=== PATIENT | female | born 1945 | race Caucasian/White ===

== ENCOUNTER → 2020-07-20 13:57 | Outpatient (BNVA) | payer OTHER, SELFPAY | PROVIDERS: PCP Physician Assistant Medical; Referring Provider Family Medicine; Visit Provider Psychiatry & Neurology Neurology | DX: R53.1 Weakness; R29.6 Repeated falls; I95.1 Orthostatic hypotension; M48.02 Spinal stenosis, cervical region | CPT/HCPCS: 99205; G2212 ==

== ENCOUNTER → 2020-08-26 07:34 | Outpatient (BNVA) | payer OTHER, SELFPAY | PROVIDERS: PCP Physician Assistant Medical; Referring Provider Physician Assistant Medical; Visit Provider Psychiatry & Neurology Neurology | DX: R69 Illness, unspecified (principal) ==

== ENCOUNTER 2024-07-22 19:06 | Emergency (ER) | payer MEDICARE, SELFPAY ==
[2024-07-22] VITALS (28 sets, daily range): BP systolic 121–192; BP diastolic 43–89; PULSE 61–111; RESP 17–34; O2SAT 81–97
--- NOTE | 2024-07-22 19:22 | W.ED.GENAD ---
Discharge Plan Disposition Patient Disposition: Home Condition: Stable Discharge Details Clinical Impression: Abdominal pain Primary Care Provider: Alirio Catherine ED Provider: Geovanny Torres Home Meds and New Rx's Prescriptions: New ondansetron 4 mg tablet,disintegrating 4 mg PO Q8H PRN (Reason: nausea and vomiting) Qty: 30 0RF Continued allopurinol 100 mg tablet 100 mg PO DAILY nortriptyline 50 mg capsule 50 mg PO BID Lantus Solostar U-100 Insulin 100 unit/mL (3 mL) insulin pen 50 unit subcut DAILY multivitamin Tablet 1 tab PO BID aspirin 325 mg tablet 325 mg PO DAILY Trulicity 0.75 mg/0.5 mL pen injector 1.5 mg subcut QWEEK glipizide 10 mg tablet 2.5 mg PO DAILY simvastatin 10 mg tablet 20 mg PO DAILY ciprofloxacin HCl 500 mg tablet 500 mg PO Q12H Rx Instructions: 7 days metronidazole 500 mg tablet 500 mg PO TID Rx Instructions: 7 days alprazolam 0.5 mg tablet 0.5 mg PO DAILY PRN azithromycin 250 mg tablet 250 mg PO DAILY Rx Instructions: 9 days buspirone 7.5 mg tablet 7.5 mg PO BID carbidopa-levodopa 25-100 mg tablet 1 tab PO TID cholecalciferol (vitamin D3) 25 mcg (1,000 unit) capsule 25 mcg PO DAILY cyanocobalamin (vitamin B-12) 1,000 mcg capsule 1,000 mcg PO DAILY memantine 5 mg tablet 5 mg PO BID polyethylene glycol 3350 [Miralax] 17 gram/dose powder 17 g PO DAILY Discharge Instructions Additional Instructions: Your CAT scan and blood work did not show any concerning findings at this time. There was some signs he may be developing a GI bug. Follow-up with your primary care provider especially if symptoms continue within a week If you feel more ill, have severe recurrent abdominal pain or persistent vomiting return to the emergency department for reevaluation HPI General Mode of arrival: EMS. Date/Time Provider Initiated Documentation: 07/22/24 19:09. Limitations to Documentation: no limitations. Information obtained by: patient. History of Present Illness 79 year old F presents to the emergency department with the chief complaint of n/v abdominal pain, described as moderate, and is localized to the abdomen. Patient started experiencing this hour(s) (8) and it has been now resolved. No relieving factors improve symptom(s), No exacerbating factors reported . Patient notes denies chest pain, fever/chills and shortness of breath. Patient did receive the following treatments prior to arrival, none Related Data Home Medications ?Medication ?Instructions ?Recorded ?Confirmed allopurinol 100 mg tablet 100 mg PO DAILY 07/20/20 07/20/20 aspirin 325 mg tablet 325 mg PO DAILY 07/20/20 07/20/20 insulin glargine 100 unit/mL (3 50 unit subcut DAILY 07/20/20 07/20/20 mL) subcutaneous pen (Lantus Solostar U-100 Insulin) multivitamin 1 tab PO BID 07/20/20 07/20/20 nortriptyline 50 mg capsule 50 mg PO BID 07/20/20 07/20/20 alprazolam 0.5 mg tablet 0.5 mg PO DAILY PRN 11/22/23 azithromycin 250 mg tablet 250 mg PO DAILY 11/22/23 buspirone 7.5 mg tablet 7.5 mg PO BID 11/22/23 carbidopa 25 mg-levodopa 100 mg 1 tab PO TID 11/22/23 tablet cholecalciferol (vitamin D3) 25 25 mcg PO DAILY 11/22/23 mcg (1,000 unit) capsule ciprofloxacin HCl 500 mg tablet 500 mg PO Q12H 11/22/23 cyanocobalamin (vitamin B-12) 1,000 mcg PO DAILY 11/22/23 1,000 mcg capsule dulaglutide 0.75 mg/0.5 mL 1.5 mg subcut QWEEK 11/22/23 subcutaneous pen injector ([facility]) glipizide 10 mg tablet 2.5 mg PO DAILY 11/22/23 memantine 5 mg tablet 5 mg PO BID 11/22/23 metronidazole 500 mg tablet 500 mg PO TID 11/22/23 polyethylene glycol 3350 17 17 g PO DAILY 11/22/23 gram/dose oral powder (Miralax) simvastatin 10 mg tablet 20 mg PO DAILY 11/22/23 ondansetron 4 mg disintegrating 4 mg PO Q8H PRN nausea and 07/22/24 tablet vomiting #30 tabs Previous Rx's ?Medication ?Instructions ?Recorded ondansetron 4 mg disintegrating 4 mg PO Q8H PRN nausea and 01/28/25 tablet vomiting #30 tabs Allergies Allergy/AdvReac Type Severity Reaction Status Date / Time contact metal agent Allergy Intermediate Itching Unverified 07/22/24 19:14 morphine Allergy Intermediate Itching Unverified 07/22/24 19:14 Penicillins Allergy Intermediate red itchy Unverified 07/22/24 19:14 rash vancomycin Allergy Intermediate urticaria Unverified 07/22/24 19:14 General Stated Complaint: Abd Prob JONNY: 3 Review of Systems All systems reviewed & are unremarkable except as noted in HPI and below Constitutional Constitutional: Denies chills, Denies fever(s) and Denies weakness Cardiovascular Cardiovascular: Denies chest pain and Denies dyspnea Respiratory Respiratory: Denies cough and Denies dyspnea Gastrointestinal Gastrointestinal: Reports abdominal pain, Reports nausea and Reports vomiting Integumentary/Breasts Skin/Breast: Denies rash Neurologic Neurologic: Denies weakness Exam Const General: no acute distress Orientation: alert HENMT Head: normal to inspection Ears: external ears normal General nose exam: external nose normal Mouth: moist mucous membranes Eyes General: appearance normal, both eyes and all related structures Neck Neck: normal visual inspection Resp Effort & Inspection: normal respiratory effort and able to speak in complete sentences Cardio Rate: regular rate GI Palpation: soft and nontender Skin General skin exam: no rashes or lesions noted Neuro General: patient alert and patient oriented x3 Extrem General: normal to inspection Psych Mental Status: mental status grossly normal Course Vital Signs Vital signs: Vital Signs Pulse 108 H 07/22/24 19:06 Respiratory Rate 18 07/22/24 19:06 Blood Pressure 180/62 H 07/22/24 19:06 Pulse Oximetry 96 07/22/24 19:06 Temperature Source Temporal Artery Scan 07/22/24 19:06 Pulse 108 H 07/22/24 19:06 Respiratory Rate 18 07/22/24 19:06 Blood Pressure 180/62 H 07/22/24 19:06 Blood Pressure Position Sitting 07/22/24 19:06 Pulse Oximetry 96 07/22/24 19:06 Oxygen Delivery Method Room Air 07/22/24 19:06 Oxygen Flow Rate 0 07/22/24 19:06 Pain Level 0 07/22/24 19:06 Medical Decision Making 79-year-old female with reported history of ulcerative colitis and has an ostomy currently comes in with nausea vomiting abdominal pain starting earlier today. She was given droperidol with EMS and now states her symptoms have resolved. She does have a small amount of normal-appearing stool in her ostomy bag. Her abdomen is currently soft with no tenderness on exam. She is not sure if her abdomen is more distended than normal. She denies any fevers. She has noted a cough. Given her history we will proceed with CBC, CMP and CT to evaluate for possible bowel obstruction. Given her cough we will check a Fluvid and a chest x-ray as well CT abdomen pelvis read as no bowel obstruction, she has multiple fluid-filled small bowel loops which may reflect an enteritis. Increased interstitial markings in the inferior lung on the chest x-ray, no focal infiltrate. Labs unremarkable. Renal function is at baseline with compared to [facility]'s labs. She is tolerating p.o. and feels significantly better and has no abdominal tenderness anymore. Given reassuring workup and the fact is tolerating p.o. with no pain I feel she is stable for discharge and follow-up with her PCP, return precautions given Differential Diagnosis Differential Diagnosis: Gastroenteritis, SBO, Quality:SDOH Health Related Social Needs: No Data to Display PFSH All Active Problems (Updated 07/22/24 @ 22:40 by Geovanny Torres MD) Abdominal pain (Acute) Cervical stenosis of spinal canal (Acute) Orthostatic hypotension (Acute) Falls frequently (Acute) Weakness (Acute) Syncope (Chronic) Medical History Pharyngitis Parkinson disease Pain of right hip joint Morbid obesity Lumbar spondylosis Kidney stone Intractable vomiting with nausea Mild cognitive impairment History of CVA (cerebrovascular accident) Dyspnea Cough Cerebrovascular disease Backache Amnesia Acute renal failure SBO (small bowel obstruction) Aspiration pneumonia Dementia Anxiety Dysphagia, unspecified Breast cancer Colostomy care Urinary incontinence, mixed Fibromyalgia H/O backache Spinal stenosis of lumbar region Degenerative lumbar spinal stenosis Osteoarthritis Rosacea Ulcerative colitis GERD (gastroesophageal reflux disease) Hypertension Depressive disorder Anemia Obesity Gout Hyperlipidemia Type 2 diabetes mellitus Malignant neoplasm of breast (female) Surgical History S/P colectomy S/P lumpectomy, left breast x2 in 2010 with lymph node removal History of total replacement of right hip 2019 Hx of section x2 Family History Father Myocardial infarction Hypertension Hyperlipidemia Heart disease Mother Family hx of lung cancer Stroke Sister Breast cancer Social History Smoking/Tobacco Use Status: Former Tobacco Use Smoking risk assessment performed?: Yes Alcohol Intake: never Details: OCCASIONAL (RARE) Drug use: Never Household members: none Housing: house Number of Children: 2 number of grandchildren: 2 current occupation: Retired Pets and animals: Yes Pets and animals: dog(s) What is your relationship status?: Panel score (0-1 are the most socially isolated patients): 0 What type of physical activity do you participate in: none Seatbelt use: always Do you feel safe at home: Yes Do you feel safe in your relationship?: Yes
[2024-07-22 19:42] LABS: Abs Immature Grans 0.09 10^3/uL (0.0-0.06); Absolute Eosinophil Count 0.03 10^3/uL (0.0-0.7); Absolute Lymphocyte Count 0.39 10^3/uL (1.2-3.4); Basophils % 0.3 %; Eosinophils % 0.2 %; HCT 42.7 % (36.0-46.0); HGB 13.8 g/dL (11.2-15.7); Immature Grans % 0.6 %; Lymphocytes % 2.6 %; MCH 30.5 pg (27.0-33.0); MCHC 32.3 % (32.0-36.0); MCV 94 fL (80-95); MPV 9.4 fL (8.0-11.0); Neutrophils % 92.3 %; Platelet Count 384 10^3/uL (130-400); RBC 4.53 10^6/uL (3.93-5.22); RDW 12.8 % (11.7-14.6); RDW-SD 43.8 fL; WBC 14.98 10^3/uL (4.4-10.8)
[2024-07-22 19:43] LABS: Absolute Basophil Count 0.04 10^3/uL (0.0-0.2); Absolute Neutrophil Count 13.83 10^3/uL (1.2-6.7)
[2024-07-22 19:57] LABS: PTT Activated 36.1 sec (20.6-30.2)
[2024-07-22 20:07] LABS: ALT 27 U/L (14-59); AST 23 U/L (15-37); Albumin 3.1 g/dL (3.4-5.0); Alkaline Phosphatase 124 U/L (46-116); Anion Gap 4.9 mmol/L (3-11); BUN 25 mg/dL (7-18); Bilirubin, Direct 0.1 mg/dL (0.0-0.2); Bilirubin, Total 0.39 mg/dL (0.2-1.0); CO2 33.1 mmol/L (21.0-32.0); CREATININE 1.5 mg/dL (0.55-1.02); Calcium 9.7 mg/dL (8.5-10.1); Chloride 95 mmol/L (98-107); Estimated GFR 35.01 (mL/min/1.73m2); Glucose 431 mg/dL (74-106); Magnesium 1.5 mg/dL (1.8-2.4); Potassium 4.8 mmol/L (3.5-5.1); Sodium 133 mmol/L (136-145); TSH (W/Ref FT4) 2.18 uIU/mL (0.36-3.74); Total Protein 8.9 g/dL (6.4-8.2)
--- NOTE | 2024-07-22 20:35 | DI.CT_ITS ---
Exam(s) CT ABDOMEN PELVIS WO EXAM: CT ABDOMEN PELVIS WO CLINICAL HISTORY: n/v, abdominal pain, ?sbo. TECHNIQUE: Imaging Protocol: Axial computed tomography images with coronal and sagittal reformatted images were created and reviewed. COMPARISON: CT CT HEAD/BRAIN WO CONTRAST from 06/11/[address] SPINE LS WO CONTRAST from 06/11/2020 MR MR LS SPINE WO CONTRAST from 06/22/2020 FINDINGS: Artifact from the right total hip arthroplasty limits evaluation of the pelvis. ABDOMEN: Lung Bases: There are calcified granuloma in the lung bases. Coronary artery calcifications are pres ent. There is pulmonary fibrosis seen in the lung bases. There is mild bronchiectasis in the lung b ases. There is a 5 mm nodule in the right lower lobe. Follow-up as clinically appropriate. Liver: Normal density. No measurable mass. Gallbladder and biliary tract: There are gallstones present. No biliary ductal dilatation. Pancreas: There is atrophy of the pancreas. Spleen: Normal. Kidneys: Normal size, contour and axis.No radiodense stones or obstructive uropathy. There is an inde terminate 2.3 x 2.3 cm hypodensity in the inferior pole of the right kidney. There is a 1.4 cm exoph ytic lesion in the midpole of the left kidney. These areas are indeterminate based on this noncontra st examination. Nonemergent ultrasound or post-contrast CT scan may be obtained for further evaluati on. Adrenal glands: There is a 1 cm hypodense nodule on the left adrenal gland likely reflecting an adeno ma. No follow-up is recommended. The right adrenal gland is unremarkable. Lymph nodes: Within normal limits. Abdominal Aorta: Abdominal portion non-dilated. Atherosclerotic calcification is present. PELVIS: Bladder:The urinary bladder is incompletely distended but grossly unremarkable. Bowel: The patient has had a colectomy. There is a right lower quadrant ostomy. There is no evidenc e of bowel obstruction. No bowel wall thickening is seen. The stomach is incompletely distended [place] iting evaluation. There are some fluid-filled loops of small bowel particularly in the left abdomen which can be seen with a diarrheal illness or enteritis. Peritoneal cavity: No ascites, collection or mesenteric inflammatory response. No free air. Reproductive organs: Unremarkable as visualized. Bones: Within normal limits. The patient has a right total hip arthroplasty. Soft Tissues: Within normal limits. IMPRESSION: 1. Fluid-filled loops of small bowel predominantly on the left which may reflect enteritis. 2. Indeterminate renal lesions. If clinically appropriate, follow-up with ultrasound. 3. Incidental findings in the abdomen and pelvis as described above. RADIATION DOSE DELIVERED: 772.72mGy.cm Total DLP DATA REPOSITORY: All CT scans at this facility are submitted to the National Radiology Data Registry (NRDR) Dose Index Registry (DIR) with the [employer] ([employer]). RADIATION OPTIMIZATION: All CT scans at this facility use at least one of these dose optimization te chniques: automated exposure control; mA and/or kV adjustment per patient size (includes targeted exa ms where dose is matched to clinical indication); or iterative reconstruction.
[2024-07-22 20:49] LABS: COVID-19 PCR Negative (Negative); Influenza A PCR Negative (Negative); Influenza B PCR Negative (Negative); RSV PCR Negative (Negative)
[2024-07-22 20:52] LABS: Source Nasopharynx
--- NOTE | 2024-07-22 21:45 | DI.RAD_ITS ---
Exam(s) XR CHEST 2V PA LATERAL EXAM: XR CHEST 2V PA LATERAL CLINICAL HISTORY: cough. TECHNIQUE: 2D digital imaging was performed. COMPARISON: No exams were available for comparison FINDINGS: 2 views: Heart size is normal. The mediastinum is not widened. There is some peripheral interstitial disease, probably element of pulmonary fibrosis. There are no confluent infiltrates nor pleural effusions. No evidence of pulmonary edema. IMPRESSION: Chronic type interstitial disease, probably element of pulmonary fibrosis. No obvious confluent infi ltrates nor pleural effusions DATA REPOSITORY: RADIATION DOSE DELIVERED:
--- NOTE | 2024-07-22 22:15 | DI.VRAD_ITS ---
PROCEDURE INFORMATION: Exam: XR Chest Exam date and time: 07/22/2024 9:06 PM Age: 79 years old Clinical indication: Cough TECHNIQUE: Imaging protocol: Radiologic exam of the chest. Views: 2 views. COMPARISON: No relevant prior studies available. FINDINGS: Tubes, catheters and devices: Cardiac leads superimposed over the chest. Lungs: No alveolar infiltrate. Increased interstitial markings within each inferior lung which may reflect an acute inflammatory process or a chronic process such as pulmonary fibrosis. Pleural spaces: No pneumothorax. No pleural fluid collection. Heart/Mediastinum: Normal heart size. Bones/joints: Spinal degenerative changes. Soft tissues: Left axillary region surgical arlyn. IMPRESSION: 1. Increased interstitial markings within each inferior lung which may reflect an acute inflammatory process or a chronic process such as pulmonary fibrosis (no prior CXR examination available for comparison). 2. No pleural fluid collection. Dictated and Authenticated by: Jameson Cordero MD. Orderin Brian Small MD
--- NOTE | 2024-07-22 22:31 | DI.VRAD_ITS ---
PROCEDURE INFORMATION: Exam: CT Abdomen And Pelvis Without Contrast Exam date and time: 07/22/2024 9:15 PM Age: 79 years old Clinical indication: N/v, abdominal pain, ?SBO; Prior surgery: Ostomy bag 20+ years ago. TECHNIQUE: Imaging protocol: Computed tomography of the abdomen and pelvis without contrast. COMPARISON: CR XR CHEST 2V PA LATERAL 07/22/2024 9:06 PM FINDINGS: Lungs: Increased interstitial markings within each inferior lung which may reflect an acute inflammatory process or a chronic process such as pulmonary fibrosis. Liver: Normal. No mass. Gallbladder and biliary ducts: Cholelithiasis, otherwise normal gallbladder. No biliary tract dilatation. Pancreas: Pancreatic atrophy. No pancreatic ductal dilatation. Spleen: Normal. No splenomegaly. Adrenal glands: Bilateral adrenal gland thickening. Kidneys and ureters: No hydronephrosis. Benign right renal calcifications. 2.0 cm right renal cortical simple cyst for which no follow-up imaging is recommended. Stomach and bowel: Right abdominal ileostomy. Multiple fluid-filled small bowel loops which may reflect an enteritis. Lateral left abdominal distended small bowel loop without generalized ileus or obstruction. Blind loop of distal sigmoid colon within the posterior pelvis. Appendix: No evidence of appendicitis. Intraperitoneal space: No free air. No significant fluid collection. Vasculature: No abdominal aortic aneurysm. Lymph nodes: No enlarged lymph nodes. Urinary bladder: Unremarkable as visualized. Reproductive: Unremarkable as visualized. Bones/joints: Streak artifact from metallic right hip prosthesis obscures portions of the lower pelvis. Spinal degenerative changes. Soft tissues: Fat-containing left periumbilical hernia. IMPRESSION: 1. Right abdominal ileostomy. No bowel obstruction. Multiple fluid-filled small bowel loops which may reflect an enteritis. 2. Cholelithiasis, otherwise normal gallbladder. No biliary tract dilatation. Dictated and Authenticated by: Jameson Cordero MD. Orderin Brian Small MD
[2024-07-22] MEDS: Ondansetron O.D.T. 4 MG TABEF, 3 TABS/BTL PO (22:42)
[2024-07-22] MEDS: ACETAMINOPHEN 1,000 MG/100 ML BAG 400 MG IVPB (22:44)
== END 2024-07-22 22:57 | disposition home or self-care (01) ==
PROVIDERS: Emergency Provider Emergency Medicine; PCP Family Medicine
DX: R10.9 Unspecified abdominal pain (principal); R11.2 Nausea with vomiting, unspecified; R05.1 Acute cough; Z87.19 Personal history of other diseases of the digestive system; I10 Essential (primary) hypertension
CPT/HCPCS: 80053; 87637; 96374; 99284; 71046; 74176; 82248; 83735; 84443; 85025; 85610; 85730; J0131